=== PATIENT | female | born 1985 | race Caucasian/White ===

== ENCOUNTER 2017-01-21 19:22 | Emergency (ER) | payer MEDICAID, OTHER ==
[~2017-01-21] VITALS: Ht 160 cm; Wt 102.5 kg
[~2017-01-21 19:22] MED LIST: ACET1TAB40 PO; OMEP20CA9 PO
[2017-01-21 19:27] VITALS: Ht 160 cm; Wt 102.5 kg
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
[2017-01-21] MEDS ORDERED: HYDROCODONE/APAP (5/325) TAB PO ONE (20:30)
--- NOTE | 2017-01-21 21:27 | RADRPT ---
PROCEDURE: XR shoulder, right. CLINICAL INDICATION: trauma, pain TECHNIQUE: internal and external rotation views and scapular Y of the left shoulder were performed . COMPARISON: None. FINDINGS: There is normal osseous mineralization and alignment. No fracture or osseous lesion is identified. T here is normal alignment of the glenohumeral and acromioclavicular joints. The soft tissues are unre markable. IMPRESSION: Unremarkable right shoulder. No visualized fracture or dislocation. RPTAT: DD .Mazin Burgos MD, MD Date Time Electronically viewed and signed by .Mazin Burgos MD, on 01/21/2017 21:27 .T/
--- NOTE | 2017-01-21 21:27 | RADRPT ---
PROCEDURE: XR Hand. CLINICAL INDICATION: Trauma. TECHNIQUE: Three views of the right hand were obtained. COMPARISON: None available. FINDINGS: There is no acute fracture, dislocation, or other osteoarticular abnormality. The alignm ent is normal and the soft tissues are unremarkable. There is no radiopaque foreign body. The osse ous mineralization is within normal limits. IMPRESSION: 1. Unremarkable right hand x-ray series. RPTAT: HLBP .Wilder Davis MD, Date Time Electronically viewed and signed by .Wilder Davis MD, on 01/21/2017 21:26 .P/
--- NOTE | 2017-01-21 21:32 | RADRPT ---
PROCEDURE: XR Right Elbow. CLINICAL INDICATION: Trauma. Pain.. TECHNIQUE: AP, lateral and oblique views of the right elbow performed. COMPARISON: None. FINDINGS: There is a comminuted, impacted interarticular fracture of the radial head and neck. There is a bone fragment along the volar aspect of the wrist medial to the radial head and superficial to the coron oid process of the ulna. Joint relationships are maintained. Bone mineralization is within normal l imits. There is no posterior fat pad sign. There is diffuse soft tissue swelling. IMPRESSION: Comminuted and impacted interarticular fracture of the radial head.. No dislocation. Additional frag ment medial to the radial head overlying the coronoid process of the ulna consistent with a avulsion fracture although the donor site other than the radial head is not distinctly characterized. RPTAT: HMVK .Chauncey Conner MD, Date Time Electronically viewed and signed by .Chauncey Conner MD, on 01/21/2017 21:31 .K/
[2017-01-21] MEDS ORDERED: TRAM-40 PO (21:34)
[2017-01-21] MEDS ORDERED: CYCL-319 PO (21:34)
[2017-01-21] MEDS ORDERED: IBUP-1542 PO (21:34)
[2017-01-21] MEDS ORDERED: HYDR-906 PO (21:37)
[2017-01-21 23:37] VITALS: PULSE 88; RESP 20; TEMP 99.2
== END 2017-01-21 22:38 | disposition home or self-care (01) ==
LOC: FTE 19:22
DX: S52.121A Displaced fracture of head of right radius, initial encounter for closed fracture (principal); S63.501A Unspecified sprain of right wrist, initial encounter; I10 Essential (primary) hypertension; V28.4XXA Motorcycle driver injured in noncollision transport accident in traffic accident, initial encounter
CPT/HCPCS: 29105; 73030; 73080; 73130; Z7502; Z7610